=== PATIENT | female | born 1960 | race Caucasian/White ===

== ENCOUNTER 2017-02-10 10:00 | Observation (INO) | payer BC, OTHER ==
[2017-02-10 10:38] LABS: CHLORIDE,CL 103 mEq/L (98-106); SODIUM,NA 141 mEq/L (136-145)
[2017-02-10] MEDS: fentaNYL 100 MCG/2 ML SDV IVPUSH PRN ×2 (10:56→13:10)
[2017-02-10] MEDS: Sodium Chloride 0.9% 1,000 ML IV SCH ×2 (10:56→19:38)
[2017-02-10] MEDS ORDERED: Iopamidol 612 MG/ML 100 ML Bottle IVPUSH ONE (11:17)
[2017-02-10] MEDS: Ondansetron 4 MG/2 ML SDV IVPUSH PRN (11:30)
[2017-02-10] MEDS ORDERED: Morphine 2 MG/ML Syringe IVPUSH PRN (12:15)
[2017-02-10] MEDS ORDERED: Levofloxacin/Dextrose 5%-Water 500 MG in Premix Bag 1 BAG IV ONE (14:07)
--- NOTE | 2017-02-10 14:19 | EDM.PDOC ---
ED HPI GENERAL MEDICAL PROBLEM - General Chief Complaint: Abdominal Pain Stated Complaint: SEVERE ABD PAIN Time Seen by Provider: 02/10/17 10:32 Source of Information: Reports: Patient History Limitations: Reports: No Limitations - History of Present Illness INITIAL COMMENTS - FREE TEXT/NARRATIVE: Patient presents to ED with complaints of LLQ pain. She states she started noting a burning discomfort last evening and it has progressively gotten worse since that time. Patient has felt mild nausea with this, no fevers. No vomiting, constipation or diarrhea. Patient relates that she does have a history of diverticulitis but never had pain this severe before. This am, she turned over in bed and felt "something ripped". Has now had much more severe pain. She denies constipation, diarrhea, no blood noted. Has been eating fresh vegetables lately but hasn't been worried about that as she does try to push fluids and maintain bulk in her stool. Onset: Gradual Duration: Hour(s):, Getting Worse Location: Reports: Abdomen Quality: Reports: Sharp, Stabbing Severity: Severe Improves with: Reports: None Associated Symptoms: Reports: Nausea/Vomiting. Denies: Confusion, Chest Pain, Cough, Fever/Chills, Loss of Appetite, Syncope, Weakness Abdominal Pain Score (Numeric/FACES): 7 - Related Data Allergies Allergy/AdvReac Type Severity Reaction Status Date / Time No Known Allergies Allergy Verified 02/10/17 10:07 Home Meds: Home Meds Hydrochlorothiazide 25 mg PO DAILY 10/18/15 [History] Levothyroxine Sodium [Levothyroxine Sodium] 125 mcg PO DAILY 10/18/15 [History] Liraglutide [Victoza] 1.2 mg SUBCUT DAILY 10/18/15 [History] Lisinopril [Prinivil] 20 mg PO DAILY 10/18/15 [History] Simvastatin [Simvastatin] 40 mg PO BEDTIME 10/18/15 [History] rOPINIRole HCl [Requip] 2 - 4 mg PO BEDTIME 10/18/15 [History] metFORMIN HCl [Metformin HCl ER] 1,000 mg PO DAILY 02/10/17 [History] Past Medical History HEENT History: Reports: Impaired Vision Cardiovascular History: Reports: High Cholesterol, Hypertension Gastrointestinal History: Reports: Diverticulosis [employer] History: Reports: Prolapsed Uterus, Other (See Below) Other OB/BYN History: uterine suspension surgery Musculoskeletal History: Reports: Back Pain, Chronic, Neck Pain, Chronic, Osteoarthritis Neurological History: Reports: Other (See Below) Other Neuro History: restless leg syndrome Endocrine/Metabolic History: Reports: Diabetes, Type II, Hypothyroidism - Past Surgical History GI Surgical History: Reports: Colonoscopy Neurological Surgical History: Reports: C-Spine, Discectomy, Lumbar Spine Social & Family History - Tobacco Use Smoking Status *Q: Never Smoker - Caffeine Use Caffeine Use: Reports: Coffee - Recreational Drug Use Recreational Drug Use: No ED ROS GENERAL - Review of Systems Review Of Systems: See Below Constitutional: Denies: Fever, Chills, Malaise, Weakness, Decreased Appetite HEENT: Reports: No Symptoms Respiratory: Denies: Shortness of Breath, Wheezing, Cough Cardiovascular: Denies: Chest Pain, Edema, Lightheadedness Endocrine: Denies: Fatigue GI/Abdominal: Reports: Abdominal Pain, Nausea. Denies: Constipation, Diarrhea, Hematochezia, Melena, Vomiting : Denies: Dysuria Musculoskeletal: Reports: No Symptoms Skin: Reports: No Symptoms Neurological: Reports: No Symptoms ED EXAM, GI/ABD - Physical Exam Exam: See Below Exam Limited By: No Limitations General Appearance: Alert, WD/WN, Mild Distress Ears: Normal External Exam, Normal TMs Nose: Normal Inspection, Normal Mucosa, No Blood Throat/Mouth: Normal Inspection, Normal Oropharynx Head: Normocephalic Neck: Normal Inspection, Supple, Non-Tender Respiratory/Chest: No Respiratory Distress, Lungs Clear, Normal Breath Sounds Cardiovascular: Normal Peripheral Pulses, Regular Rate, Rhythm, No Edema GI/Abdominal Exam: Normal Bowel Sounds, Soft Extremities: Normal Inspection, Normal Capillary Refill Neurological: Alert, Oriented Psychiatric: Normal Affect, Normal Mood Skin Exam: Warm, Dry Course - Vital Signs Last Recorded V/S: Last Vital Signs Temp 98.2 F 02/10/17 13:10 Pulse 72 02/10/17 13:10 Resp 20 02/10/17 13:10 BP 105/59 L 02/10/17 13:10 Pulse Ox 96 02/10/17 13:10 - Orders/Labs/Meds Orders: Active Orders 24 hr Category Date Time Status Abdomen 2V AP Flat Upright [CR] Stat Exams 02/10/17 10:11 Taken Abdomen Pelvis w Cont [CT] Stat Exams 02/10/17 11:06 Taken Morphine Med 02/10/17 12:15 Active 2 mg IVPUSH Q2H PRN Ondansetron [Zofran] Med 02/10/17 11:25 Active 4 mg IVPUSH Q6H PRN Sodium Chloride 0.9% [Normal Saline] 1,000 ml Med 02/10/17 10:45 Active IV ASDIRECTED fentaNYL [Sublimaze] Med 02/10/17 14:54 Active 50 mcg IVPUSH Q1H PRN Medication Orders Fentanyl (Sublimaze) 50 mcg IVPUSH Q1H PRN PRN Reason: Pain Last Admin: 02/10/17 15:02 Dose: 50 mcg Sodium Chloride (Normal Saline) 1,000 mls @ 125 mls/hr IV ASDIRECTED MARCIE Last Admin: 02/10/17 10:56 Dose: 125 mls/hr Morphine Sulfate (Morphine) 2 mg IVPUSH Q2H PRN PRN Reason: Pain Last Admin: 02/10/17 12:22 Dose: 2 mg Ondansetron HCl (Zofran) 4 mg IVPUSH Q6H PRN PRN Reason: Nausea Last Admin: 02/10/17 11:30 Dose: 4 mg Labs: Laboratory Tests 02/10/17 02/10/17 02/10/17 Range/Units 10:10 10:10 10:10 WBC 9.2 (5.0-10.0) 10^3/uL RBC 4.55 (4.00-5.50) 10^6/uL Hgb 12.4 (12.0-16.0) g/dL Hct 37.4 (37.0-47.0) % MCV 82.2 (82.0-94.0) fL MCH 27.3 (27.0-32.0) pg MCHC 33.2 (33.0-38.0) g/dL RDW Coeff of [place] 14.7 (11.0-15.0) % Plt Count 346 (150-400) 10^3/uL Neut % (Auto) 72.2 (35-85) % Lymph % (Auto) 19.3 (10-55) % [place] % (Auto) 6.8 (0-16) % Eos % (Auto) 1.5 (0-5) % Baso % (Auto) 0.2 (0-3) % Neut # (Auto) 6.64 (1.80-7.00) 10^3/uL Lymph # (Auto) 1.78 (1.00-4.80) 10^3/uL [place] # (Auto) 0.63 (0.00-0.80) 10^3/uL Eos # (Auto) 0.14 (0.00-0.45) 10^3/uL Baso # (Auto) 0.02 10^3/uL Sodium 141 (136-145) mEq/L Potassium 3.9 (3.5-5.0) mEq/L Chloride 103 (98-106) mEq/L Carbon Dioxide 28 (21-32) mmol/L BUN 14 (7-18) mg/dL Creatinine 0.9 (0.6-1.0) mg/dL Est Cr Clr Drug Dosing 62.80 mL/min Estimated GFR (MDRD) > 60 (>=60) mL/min Glucose 111 H (75-99) mg/dL Calcium 9.1 (8.4-10.1) mg/dL Total Bilirubin 0.4 (0.0-1.0) mg/dL AST 17 (15-37) U/L ALT 32 (12-78) U/L Alkaline Phosphatase 86 (46-116) U/L C-Reactive Protein 3.3 H (0.2-0.8) mg/dL Total Protein 7.9 (6.4-8.2) g/dL Albumin 4.0 (3.4-5.0) g/dL Amylase 50 (25-115) U/L Urine Color Yellow (YELLOW) Urine Appearance Clear (CLEAR) Urine pH 5.5 (4.5-8.0) Ur Specific [place] 1.022 H (1.003-1.020) Urine Protein Negative (NEGATIVE) mg/dL Urine Glucose (UA) Negative (NEGATIVE) mg/dL Urine Ketones Negative (NEGATIVE) mg/dL Urine Occult Blood Negative (NEGATIVE) Urine Nitrite Negative (NEGATIVE) Urine Bilirubin Negative (NEGATIVE) Urine Urobilinogen 0.2 (0.2-1.0) EU/dL Ur Leukocyte Esterase Small H (NEGATIVE) Urine RBC Not seen (0-5) /HPF Urine WBC 5-10 H (0-5) /HPF Ur Epithelial Cells Moderate H (NOT SEEN) /HPF Meds: Medications Generic Name Dose Route Start Last Admin Trade Name Freq PRN Reason Stop Dose Admin Fentanyl 50 mcg 02/10/17 14:54 02/10/17 15:02 Sublimaze IVPUSH 50 mcg Q1H PRN Administration Pain Sodium Chloride 1,000 mls @ 125 mls/hr 02/10/17 10:45 02/10/17 10:56 Normal Saline IV 125 mls/hr ASDIRECTED MARCIE Administration Morphine Sulfate 2 mg 02/10/17 12:15 02/10/17 12:22 Morphine IVPUSH 2 mg Q2H PRN Administration Pain Ondansetron HCl 4 mg 02/10/17 11:25 02/10/17 11:30 Zofran IVPUSH 4 mg Q6H PRN Administration Nausea Discontinued Medications Generic Name Dose Route Start Last Admin Trade Name Freq PRN Reason Stop Dose Admin Fentanyl 25 - 50 mcg 02/10/17 10:38 02/10/17 13:10 Sublimaze IVPUSH 50 mcg Q6H PRN Administration Pain Levofloxacin/Dextrose 500 mg/ 100 mls @ 100 mls/hr 02/10/17 14:07 02/10/17 15 :01 Premix IV 02/10/17 15:06 100 mls/hr ONETIME ONE Administration Iopamidol 100 ml 02/10/17 11:17 02/10/17 14:42 Isovue-300 (61%) IVPUSH 02/10/17 11:18 100 ml ONETIME ONE Administration - Re-Assessments/Exams Free Text/Narrative Re-Assessment/Exam: 02/10/17 1100 Lab results reviewed and relayed to patient. Will proceed with CT scan. Patient aware and agrees. Meds ordered for pain. 02/10/17 1630- Has continued to have ongoing pain. CT scan negative for concerns. Does have history of hysterectomy but still has ovaries. Will admit for IV fluids, pain control and antibiotics. Departure - Departure Time of Disposition: 17:40 Disposition: Refer to Observation Condition: Fair Clinical Impression: Abdominal pain - Discharge Information Referrals: PCP,None [Primary Care Provider] - Forms: ED Department Discharge - Problem List & Annotations (1) Abdominal pain SNOMED Code(s): 49069937 Code(s): R10.9 - UNSPECIFIED ABDOMINAL PAIN Status: Acute Current Visit: Yes - Problem List Review Problem List Initiated/Reviewed/Updated: Yes - My Orders Last 24 Hours: My Active Orders 02/10/17 10:11 Abdomen 2V AP Flat Upright [CR] Stat 02/10/17 10:45 Sodium Chloride 0.9% [Normal Saline] 1,000 ml IV ASDIRECTED 02/10/17 11:06 Abdomen Pelvis w Cont [CT] Stat 02/10/17 11:25 Ondansetron [Zofran] 4 mg IVPUSH Q6H PRN 02/10/17 12:15 Morphine 2 mg IVPUSH Q2H PRN 02/10/17 14:54 fentaNYL [Sublimaze] 50 mcg IVPUSH Q1H PRN - Assessment/Plan Admission H&P: Please use this note as an admission H&P Last 24 Hours: My Active Orders 02/10/17 10:11 Abdomen 2V AP Flat Upright [CR] Stat 02/10/17 10:45 Sodium Chloride 0.9% [Normal Saline] 1,000 ml IV ASDIRECTED 02/10/17 11:06 Abdomen Pelvis w Cont [CT] Stat 02/10/17 11:25 Ondansetron [Zofran] 4 mg IVPUSH Q6H PRN 02/10/17 12:15 Morphine 2 mg IVPUSH Q2H PRN 02/10/17 14:54 fentaNYL [Sublimaze] 50 mcg IVPUSH Q1H PRN Assessment:: LLQ pain Plan: Admit to observation for IV fluids, pain control. Will repeat labs and obtain ultrasound in am.
[2017-02-10] MEDS ORDERED: fentaNYL 100 MCG/2 ML SDV IVPUSH PRN (14:54)
[2017-02-10] MEDS ORDERED: Ondansetron 4 MG Tab.DIS PO PRN (18:00)
[2017-02-10] MEDS ORDERED: Temazepam 15 MG Cap PO PRN (18:00)
[2017-02-10] MEDS ORDERED: Acetaminophen 325 MG Tab PO PRN (18:31)
[2017-02-10] MEDS: Acetaminophen/oxyCODONE 325-5 MG Tab PO PRN (18:44)
[2017-02-10] MEDS: Pantoprazole 40 MG Vial IVPUSH SCH (18:45)
[2017-02-10] MEDS: rOPINIRole 1 MG Tab PO SCH (19:37)
[2017-02-10] MEDS: Ibuprofen 200 MG Tab PO PRN (21:20)
[2017-02-11] MEDS: Ibuprofen 200 MG Tab PO PRN ×2 (03:46→15:48)
[2017-02-11] MEDS: Acetaminophen/oxyCODONE 325-5 MG Tab PO PRN ×2 (03:46→13:48)
[2017-02-11] MEDS: Sodium Chloride 0.9% 1,000 ML IV SCH ×2 (03:46→14:31)
[2017-02-11 07:52] LABS: CHLORIDE,CL 105 mEq/L (98-106); SODIUM,NA 142 mEq/L (136-145)
[2017-02-11] MEDS: Levofloxacin/Dextrose 5%-Water 500 MG in Premix Bag 1 BAG IV SCH (09:07)
[2017-02-11] MEDS: LEVOTHYROXINE 125 MCG PO SCH ×2 (09:08→16:58)
[2017-02-11] MEDS: PTOM-Hydrochlorothiazide 25 MG Tab PO SCH (09:08)
[2017-02-11] MEDS: Lisinopril 20 MG Tab PO SCH (09:08)
--- NOTE | 2017-02-11 09:08 | PN ---
DATE: 02/11/2017 S: Mckenzie Cervantes was admitted with left lower quadrant abdominal pain. O: On examination, bowel sounds are good. She is tender with a little bit rebound. LABORATORY DATA: C-reactive protein is elevated. CAT scan looked okay, but I still think she has early diverticulitis, so we will continue IV Levaquin. MALORIE/FRANCES /[id number]
[2017-02-11] MEDS: metroNIDAZOLE/Normal Saline 500 MG in Premix Bag 1 BAG IV SCH ×2 (10:22→17:10)
[2017-02-11] MEDS: Lactated Ringers 1,000 ML IV SCH (17:08)
[2017-02-11] MEDS: Insulin Aspart 100 Units/ML 3 ML Pen SUBCUT SCH ×2 (17:32→20:59)
[2017-02-11] MEDS: Pantoprazole 40 MG Vial IVPUSH SCH (18:09)
[2017-02-11] MEDS: rOPINIRole 1 MG Tab PO SCH (19:45)
[2017-02-12] MEDS: Ibuprofen 200 MG Tab PO PRN (00:37)
[2017-02-12] MEDS: metroNIDAZOLE/Normal Saline 500 MG in Premix Bag 1 BAG IV SCH ×4 (00:37→23:58)
[2017-02-12] MEDS: Ondansetron 4 MG/2 ML SDV IVPUSH PRN (02:48)
[2017-02-12] MEDS: Lactated Ringers 1,000 ML IV SCH (02:48)
[2017-02-12] MEDS: Acetaminophen/oxyCODONE 325-5 MG Tab PO PRN ×2 (04:51→21:05)
[2017-02-12] MEDS: LEVOTHYROXINE 125 MCG PO SCH (07:48)
[2017-02-12 07:49] LABS: CHLORIDE,CL 105 mEq/L (98-106); SODIUM,NA 142 mEq/L (136-145)
[2017-02-12] MEDS: Levofloxacin/Dextrose 5%-Water 500 MG in Premix Bag 1 BAG IV SCH (07:55)
[2017-02-12] MEDS: Insulin Aspart 100 Units/ML 3 ML Pen SUBCUT SCH ×4 (07:58→20:23)
[2017-02-12] MEDS ORDERED: Iopamidol 755 Mg/ML 100 ML Bottle IVPUSH ONE (08:58)
[2017-02-12] MEDS: VICTOZA 1.2 MG SUBCUT SCH (09:45)
[2017-02-12] MEDS: PTOM-Hydrochlorothiazide 25 MG Tab PO SCH (09:46)
[2017-02-12] MEDS: LISINOPRIL 10 MG PO SCH (09:46)
[2017-02-12] MEDS: Lisinopril 20 MG Tab PO SCH (09:47)
--- NOTE | 2017-02-12 10:55 | PN ---
DATE: 02/12/2017 S: Mckenzie Cervantes is in with abdominal pain. Last night her sats dropped and she became a little short of breath, had a funny feeling in her chest . O: NECK: On examination, neck is supple. CHEST: Clear. HEART: Cardiac sounds are good. ABDOMEN: Tenderness better. Bowel sounds are good. ASSESSMENT: ABDOMINAL PAIN, QUESTION DIVERTICULITIS. SHORTNESS OF BREATH. P: We will get a D-dimer, chest x-ray and appropriate lab work this morning. MALORIE/FRANCES /[id number]
[2017-02-12] MEDS: Pantoprazole 40 MG Vial IVPUSH SCH (17:56)
[2017-02-12] MEDS ORDERED: ROPINIROLE 2 MG PO SCH (20:00)
[2017-02-13] MEDS: LEVOTHYROXINE 125 MCG PO SCH (06:45)
[2017-02-13] MEDS: PTOM-Hydrochlorothiazide 25 MG Tab PO SCH (07:34)
[2017-02-13] MEDS: LISINOPRIL 10 MG PO SCH (07:35)
[2017-02-13] MEDS: metroNIDAZOLE/Normal Saline 500 MG in Premix Bag 1 BAG IV SCH ×2 (07:35→15:43)
[2017-02-13] MEDS: VICTOZA 1.2 MG SUBCUT SCH (07:47)
[2017-02-13] MEDS: Insulin Aspart 100 Units/ML 3 ML Pen SUBCUT SCH ×2 (07:49→12:14)
[2017-02-13] MEDS: Ondansetron 4 MG/2 ML SDV IVPUSH PRN (08:01)
[2017-02-13 08:12] LABS: CHLORIDE,CL 104 mEq/L (98-106); SODIUM,NA 141 mEq/L (136-145)
[2017-02-13] MEDS: Levofloxacin/Dextrose 5%-Water 500 MG in Premix Bag 1 BAG IV SCH (08:41)
[2017-02-13] MEDS ORDERED: Iopamidol 612 MG/ML 100 ML Bottle IVPUSH ONE (10:48)
--- NOTE | 2017-02-13 13:29 | PN ---
DATE: 02/13/2017 S: Mckenzie Cervantes is in with abdominal pain. C-reactive protein is down. O: ABDOMEN: On examination of abdomen, bowel sounds are okay. breaker tender in the left lower quadrant, rebound. ASSESSMENT: DIVERTICULITIS, POSSIBLE MICROPERFORATION. I AM GOING TO REPEAT HER CT OF HER ABDOMEN TODAY. MALORIE/FRANCES /[id number]
[2017-02-13 16:53] VITALS: BP 117/68
--- NOTE | 2017-02-16 07:58 | DISCH ---
HOSPITAL COURSE: Mckenzie Cervantes came in with moderate severe diverticulitis. Initial CAT scan was read as normal, retrospectively went back and looked at and it did show diverticulitis. Continued to have abdominal pain. C-reactive protein got as high as 30 and at 17.5 prior to discharge. I CT'd her again today. There is a small microperforation, but she demands to go home. She has been on IV antibiotics for 3 days. This is 1 of multiple bouts of diverticulitis. Had an elevated D-dimer and dropped her saturations, so I did a CTA of her chest which was normal. Rest of lab, white count got up to 10.4, discharge 83, D-dimer was 0.97, blood sugars were stable. C-reactive protein got as high as 30 and is down to 17. B12 and folate acid are borderline. Urinalysis looked good. DISPOSITION: The patient now discharged home. We will see her back in the clinic on Thursday. Repeat lab results. Arrange for a partial colon resection. DISCHARGE MEDICATIONS: 1. Home medications plus Levaquin 500 mg daily x7 days. 2. Flagyl 500 b.i.d. for 7 days. DISCHARGE DIAGNOSIS: 1. MODERATE TO SEVERE DIVERTICULITIS, MICROPERFORATION. 2. DIABETES MELLITUS. 3. HYPOTHYROIDISM. 4. HYPERLIPIDEMIA. MALORIE/FRANCES /[id number]
== END 2017-02-13 17:00 | disposition home or self-care (01) ==
LOC: CC.ED 10:00 → CC.MS 17:59 → UNDOADMOB 17:59 → CC.MS 18:00
PROVIDERS: ADMIT Physician Assistant Medical; ATTEND General Practice
DX: R10.32 Left lower quadrant pain (principal); I10 Essential (primary) hypertension; E78.00 Pure hypercholesterolemia, unspecified; E11.9 Type 2 diabetes mellitus without complications; E03.9 Hypothyroidism, unspecified; Z98.890 Other specified postprocedural states; Z79.84 Long term (current) use of oral hypoglycemic drugs; Z79.899 Other long term (current) drug therapy
CPT/HCPCS: 36415; 71020; 71275; 74020; 74177; 76830; 76856; 80048; 80053; 81001; 82150; 82607; 82746; 82962; 85025; 85379; 86140; 96361; 96365; 96366; 96367; 96372; 96375; 96376; 99285; A9270; C9113; G0378; J1956; J2270; J2405; J3010; J7030; J7120; Q9967